=== PATIENT | male | born 1960 | race Caucasian/White ===

== ENCOUNTER 2017-12-21 10:56 | Emergency (ER) | payer BC, OTHER ==
[~2017-12-21] VITALS: Ht 180.3 cm; Wt 108.5 kg
[~2017-12-21 10:56] MED LIST: ATOR-14 PO; DULO60CA44 PO; HYDR-5688 PO; MULTTAB58 PO; OMEP20CA9 PO; PREG150C PO; WARF10TA PO; WARF7.5T PO
[2017-12-21 11:07] VITALS: TEMP 37.2; Ht 180.3 cm; Wt 108.5 kg
[2017-12-21] MEDS ORDERED: ONDANSETRON INJ 2 MG/ML 2 ML VIAL IV STA (11:33)
[2017-12-21] MEDS ORDERED: MoRPHine SULFATE 10 MG/ML CARP/VIAL IV STA (11:33)
[2017-12-21] MEDS ORDERED: METHYLPREDNISOLONE 125 MG VIAL IV STA (11:33)
[2017-12-21 12:08] LABS: INR 2.6 (0.9-1.1)
--- NOTE | 2017-12-21 12:37 | DIAGNOSTIC IMAGING REPORT ---
L-SPINE MIN 4 VIEWS ROUTINE CLINICAL HISTORY: 57 years-old Male presenting with LBP. TECHNIQUE: Frontal, bilateral oblique, lateral, and coned in lateral views of the lumbar spine were obtained. COMPARISON: None. FINDINGS: Posterior bilateral transpedicular screw and pacheco fixation of T11, T12, L2, L3 skin thickening L1 level. No gross evidence of hardware breakage. At L1, there is a compression fracture with at least 50% height loss anteriorly in significant concavity of the superior inferior endplates. Lordosis is otherwise maintained. Vertebral body heights otherwise maintained. No gross evidence of osseous neural foraminal narrowing. IVC filter positioned at the level of L3-4. Cholecystectomy clips noted. A spinal stimulator enters the spinal canal at T10 and terminates at T8-9. IMPRESSION: 1. Compression fracture of L1, age indeterminate. 2. Posterior fusion hardware without complication. Electronically signed by: Marc Cunha M.D. 12/21/2017 12:35 PM Dictated Date/Time: 12/21/2017 12:33 PM
[2017-12-21 12:50] VITALS: BP 109/63; PULSE 74; O2SAT 96
[2017-12-21] MEDS ORDERED: HYDR-5688 PO (13:02)
--- NOTE | 2017-12-21 13:44 | EMERGENCY ROOM VISIT NOTE ---
History First contact with patient: 11:18 Chief Complaint: BACK PAIN Stated Complaint: BACK SPASMS History of Present Illness The patient is a 57 year old male who presents to the Emergency Room with complaints of lower back pain and worsening left sciatica. The patient reports a prior history of chronic sciatica status post lumbar fusion and nerve stimulator placement. The nerve stimulator was implanted on 07/19/[address] Pantoja at [facility] in [place]. The patient last saw a device payable representative for an adjustment in 2015. The patient reports that he was at [place] last week and did a lot of walking, and that has worsened his discomfort. The patient reports chronic left lower extremity weakness and numbness. He has not had any urinary/bowel incontinence or saddle anesthesias. The patient denies any other recent trauma or injury to the back. The patient is currently on Coumadin for history of pulmonary emboli. His last INR check was over a month ago. The patient has been taking Lyrica and hydrocodone without relief, and currently rates his discomfort a 9 out of 10. Pain management is provided by his PCP, Dr. Valera. Review of Systems 10 system review was performed and was negative except for pertinent positives and negatives as indicated in history of present illness Past Medical/Surgical History Medical Problems: (1) Bilateral pulmonary embolism (2) Depressive Disorder Nec (3) History of neurostimulator (4) Left leg DVT (5) Suicidal Ideation (6) Tobacco Use Disorder Surgical Problems: (1) History of lumbar fusion Family History Patient reports no known family medical history. Social History Smoking Status: Never Smoker Alcohol Use: occasionally Marital Status: Occupation Status: employed Current/Historical Medications Scheduled Duloxetine Hcl (Cymbalta), 60 MG PO DAILY Multiple Vitamin (Multivitamin), 1 TAB PO DAILY Omeprazole (Prilosec), 20 MG PO DAILY Pregabalin (Lyrica), 150 MG PO BID Warfarin Sodium (Coumadin), 7.5 MG PO DAILY@1600 Scheduled PRN Hydrocodone/Acetaminophen 5MG/325MG ([place] 5MG/325MG), 1-2 TABLETS PO UD PRN for Pain Hydrocodone/Acetaminophen 5MG/325MG ([place] 5MG/325MG), 1-2 TABLET PO Q4H PRN for Pain Physical Exam Vital Signs Date Time Temp Pulse Resp B/P (MAP) Pulse Ox O2 Delivery O2 Flow Rate FiO2 3/3/18 12:50 74 18 109/63 96 Room Air 12/21/17 11:07 37.2 80 18 136/89 98 Room Air Physical Exam CONSTITUTIONAL: Healthy and well nourished. Alert and oriented X 3 with positive affect. Patient appears in moderate discomfort from pain. HEENT: Normocephalic, atraumatic. Pupils equal, round and reactive. NECK: Full active range of motion without discomfort. RESPIRATORY: Clear to auscultation bilaterally with no wheezing, crackles, rhonchi or stridor. CARDIOVASCULAR: Regular rate and rhythm with no murmurs, rubs or gallops. GASTROINTESTINAL: Bowel sounds present in all quadrants. Soft and nontender to palpation. MUSCULOSKELETAL: Examination shows tenderness to palpation of the left paraspinous muscle without obvious spasm. He has tenderness through the left SI joint and sciatic notch. Negative logroll. Negative straight leg raise. Ankle plantar/dorsiflexion strength is 2 out of 5 on the left, 5 out of 5 on the right. The patient reports that this is his baseline. Pedal pulses are intact. INTEGUMENTARY: No rash or other significant dermatologic conditions noted. NEUROLOGIC: No focal neurologic deficits noted. Left foot and toes are grossly sensory intact. Medical Decision & Procedures ER Provider Diagnostic Interpretation: My interpretation of a lumbar spine x-ray shows an age-indeterminate L1 compression fracture. Additional fusion hardware is noted throughout the lower thoracic and lumbar spine, with stimulator leads in the lower thoracic spine.. Radiologist report is as follows: L-SPINE MIN 4 VIEWS ROUTINE CLINICAL HISTORY: 57 years-old Male presenting with LBP. TECHNIQUE: Frontal, bilateral oblique, lateral, and coned in lateral views of the lumbar spine were obtained. COMPARISON: None. FINDINGS: Posterior bilateral transpedicular screw and pacheco fixation of T11, T12, L2, L3 skin thickening L1 level. No gross evidence of hardware breakage. At L1, there is a compression fracture with at least 50% height loss anteriorly in significant concavity of the superior inferior endplates. Lordosis is otherwise maintained. Vertebral body heights otherwise maintained. No gross evidence of osseous neural foraminal narrowing. IVC filter positioned at the level of L3-4. Cholecystectomy clips noted. A spinal stimulator enters the spinal canal at T10 and terminates at T8-9. IMPRESSION: 1. Compression fracture of L1, age indeterminate. 2. Posterior fusion hardware without complication. Laboratory Results Test 12/21/17 11:43 Prothrombin Time 26.9 SECONDS (9.0-12.0) Prothromb Time International Ratio 2.6 (0.9-1.1) INR is 2.6 and therefore therapeutic. Medications Administered Medications (Trade) Dose Ordered Sig/Janki Route Start Time Stop Time Status Last Admin Dose Admin Morphine Sulfate (MoRPHine SULFATE INJ) 10 mg NOW STAT IV 12/21/17 11:33 12/21/17 11:39 DC 12/21/17 11:50 10 MG Ondansetron HCl (Zofran Inj) 4 mg NOW STAT IV 12/21/17 11:33 12/21/17 11:39 DC 12/21/17 11:49 4 MG Methylprednisolone Sodium Succinate (Solu-Medrol IV) 125 mg NOW STAT IV 12/21/17 11:33 12/21/17 11:39 DC 12/21/17 11:49 125 MG ED Course Patient history and physical exam were performed. Nurse's notes were reviewed. Vital signs were reviewed in normal. I also reviewed the [place] Prescription Drug Monitoring Program, showing that the patient is receiving prescriptions for Lyrica and hydrocodone from his PCP only, with no other red flags appreciated. IV access was established. The patient was administered IV morphine, Zofran and Solu-Medrol. INR check shows a therapeutic level. Review of lumbar spine x-rays shows an age indeterminate L1 compression fracture, along with posterior fusion hardware. Findings were discussed with the patient. The patient reports that he has a known history of L5 compression fracture, but does not believe that he has had a prior L1 compression deformity. The patient was instructed to call his spine surgeon for an appointment so that comparisons can be made. The patient was provided a copy of his x-rays on disc for this appointment. The patient reports that his authorization for opioid prescriptions ran out yesterday. He only has a few pills left. The patient was provided a prescription for [place] 5/325, dispensed #15 with no refills. The patient was instructed to call his PCP on Saturday morning to advise them of this prescription and quantity. It appears that the patient has a quantity limitation on his opioid prescriptions. The patient rated his discomfort a 6 out of 10 at the completion of my examination. I did offer additional intravenous medications prior to discharge, but the patient reported that he felt well enough at this point to go home. Medical Decision [place] Drug Monitoring Program Search Results: patient reviewed within database, see additional documentation Medication Reconcilliation Current Medication List: was personally reviewed by me Blood Pressure Screening Patient's blood pressure: Normal blood pressure Impression Primary Impression: Compression fracture of L1 lumbar vertebra Additional Impressions: History of spinal fusion History of neurostimulator Therapeutic INR Departure Information Prescriptions Hydrocodone/Acetaminophen 5MG/325MG ([place] 5MG/325MG) Tab 1-2 TABLET PO Q4H Y for Pain, #15 TAB For Initial Treatment Prov: Uzair Bar PA 12/21/17 Referrals Marc Valera M.D. (PCP) Patient Instructions My [facility] Problem Qualifiers Primary Impression: Compression fracture of L1 lumbar vertebra Encounter type: initial encounter Fracture type: closed Qualified Codes: S32.010A - Wedge compression fracture of first lumbar vertebra, initial encounter for closed fracture
== END 2017-12-21 13:08 | disposition home or self-care (01) ==
LOC: C.EDB 10:58 → C.EDD 13:08
DX: S32.010A Wedge compression fracture of first lumbar vertebra, initial encounter for closed fracture (principal); Z98.1 Arthrodesis status; Z96.89 Presence of other specified functional implants; R79.1 Abnormal coagulation profile; X58.XXXA Exposure to other specified factors, initial encounter; F32.9 Major depressive disorder, single episode, unspecified; Z79.01 Long term (current) use of anticoagulants; Z86.711 Personal history of pulmonary embolism; Z86.718 Personal history of other venous thrombosis and embolism